=== PATIENT | female | born 1940 | race African-American/Black ===

== ENCOUNTER 2016-09-11 20:13 | Inpatient (IN) ==
[2016-09-11] MEDS ORDERED: ALBUTEROL NEB INH ONE (20:33)
[2016-09-11] MEDS ORDERED: DUONEB (A & A) INH ONE (20:33)
[2016-09-11] MEDS ORDERED: SOLU-MEDROL IV ONE (20:33)
[2016-09-11 20:43] LABS: MANUAL DIFF NEEDED? NO
[2016-09-11 20:54] LABS: BASO% 0.6 % (0.0-0.8); EOS# 0.52 X1000 (0.0-0.7); EOS% 6.2 % (0.0-10.0); HEMATOCRIT 45.3 % (37.0-47.0); HEMOGLOBIN 14.4 g/dL (12.0-16.0); IMM GRAN# 0.02 X1000 (0.0-0.04); IMM GRAN% 0.2 % (0.0-0.5); LYMPH# 1.54 X1000 (1.2-3.4); LYMPH% 18.2 % (20.5-51.1); MCH 29.6 PG (27-31); MCHC 31.8 g/dL (33-37); MCV 93.2 FL (81-99); MONO# 0.59 X1000 (0.11-0.59); MPV 12.4 FL (7.4-10.4); NEUT% 67.8 % (42.2-75.2); PLT 181 X1000 (130-400); RBC 4.86 XMIL (4.2-5.4)
[2016-09-11 21:18] LABS: CALCIUM 9.6 mg/dL (8.8-10.2); MAGNESIUM 2.3 mg/dL (1.5-2.7); POTASSIUM 4.3 mmol/L (3.5-5.1); TOTAL BILIRUBIN 0.3 mg/dL (0.20-1.00); TOTAL PROTEIN 7.7 g/dL (6.3-8.3)
--- NOTE | 2016-09-11 21:55 | Diag Imaging Result Document ---
PROCEDURE NAME: CHEST-2 VIEWS - 09/11/2016 FRONTAL AND LATERAL CHEST, 2 VIEWS: COMPARISON: 03/13/2016. FINDINGS: Sternal wires are present. The lungs are well expanded. The heart is not enlarged. The vessels are not distended. No pleural effusions. No pneumonia. Prominent aortic arch. This is unchanged from the prior exam. IMPRESSION: Stable chest.
[2016-09-11] MEDS: DUONEB (A & A) INH SCH (23:30)
[2016-09-12] MEDS: DUONEB (A & A) INH SCH ×6 (03:14→22:50)
--- NOTE | 2016-09-12 05:39 | EKG Report ---
Test Performed on : 09/11/2016 8:16:19 PM Test Reason : dyspnea Blood Pressure : / mmHG Vent. Rate : 106 BPM Atrial Rate : 096 BPM P-R Int : 000 ms QRS Dur : 100 ms QT Int : 332 ms P-R-T Axes : 000 -23 102 degrees QTc Int : 441 ms Accelerated Junctional rhythm. Septal infarct (cited on or before 11-SEP-2016) T wave abnormality, consider lateral ischemia Abnormal ECG When compared with ECG of 11-SEP-2016 20:15, (Unconfirmed) No significant change was found Unconfirmed Result
[2016-09-12] MEDS: HUMALOG DOSE (PARKWAY) SUBQ SCH ×4 (07:34→22:28)
[2016-09-12 08:08] LABS: BILIRUBIN URINE NEGATIVE (NEGATIVE); BLOOD URINE NEGATIVE (NEGATIVE); LEUKOCYTES URINE 1+ (NEGATIVE); NITRITE URINE NEGATIVE (NEGATIVE); PROTEIN URINE TRACE mg/dL (NEGATIVE); UROBILINOGEN URINE NORMAL
[2016-09-12 08:09] LABS: CLARITY CLEAR (CLEAR); COLOR YELLOW
[2016-09-12 08:18] LABS: URINE CULTURE PL NEEDED? YES; URINE EPITHELIAL CELLS <10 /HPF (<10)
[2016-09-12 08:19] LABS: URINE SOURCE CLEAN CATCH
[2016-09-12] MEDS ORDERED: ULTRAM PO PRN (09:04)
[2016-09-12] MEDS: LOPRESSOR PO SCH ×2 (10:43→22:26)
[2016-09-12] MEDS: ASPIRIN PO SCH (10:43)
[2016-09-12] MEDS: PRINIVIL PO SCH (10:43)
[2016-09-12] MEDS: GLUCOPHAGE PO SCH (10:44)
[2016-09-12] MEDS ORDERED: TYLENOL PO PRN (11:18)
[2016-09-12] MEDS ORDERED: ZOFRAN IV PRN (11:18)
[2016-09-12] MEDS: SOLU-MEDROL IV SCH ×2 (13:31→21:16)
[2016-09-12] MEDS: SYMBICORT 80/4.5 MICROGM INHALER INH SCH ×2 (14:48→19:23)
[2016-09-12] MEDS: CRESTOR PO SCH (21:15)
[2016-09-13] MEDS: DUONEB (A & A) INH SCH ×6 (04:02→22:54)
[2016-09-13] MEDS: SOLU-MEDROL IV SCH ×3 (04:40→20:40)
[2016-09-13] MEDS: HUMALOG DOSE (PARKWAY) SUBQ SCH ×4 (06:23→20:41)
[2016-09-13] MEDS: GLUCOPHAGE PO SCH (08:10)
--- NOTE | 2016-09-13 08:26 | PROGRESS NOTE ---
DATE: 09/13/2016 SUBJECTIVE: The patient notes that she is feeling a lot better this morning. She denies any current cough, congestion, chest pain. Denies any fevers or chills. States that overall she is feeling better. PHYSICAL EXAM: Vital Signs: Temperature 95, pulse 68, respiratory 10, BP 144/47, 173/81. Saturation 98% on 2 L. General: The patient is awake, alert. She is currently in no respiratory distress. She states she is feeling better. HEENT: Normocephalic. Neck: Supple. CV: Regular rate. Chest: Much more clear. No wheezing. No crackles, nonlabored. Abdomen: Soft. Extremities: Moves all extremities. Neurologic: No changes. LABS: Pending. ASSESSMENT: 1. Chronic obstructive pulmonary disease with moderate exacerbation. 2. Known coronary artery disease. 3. Diabetes, stable. 4. Hypertension. Will add lisinopril. 5. High cholesterol. PLAN: We will wean patient's Solu-Medrol to 40 IV q.8 hours. Hopefully home in the next day or 2. Will continue sliding scale insulin. We will add lisinopril. Continue breathing treatments, oxygen. Further orders as needed. cc: Lalo Mccord MD
[2016-09-13] MEDS: SYMBICORT 80/4.5 MICROGM INHALER INH SCH ×2 (08:39→19:46)
[2016-09-13 08:58] LABS: HEMATOCRIT 43.2 % (37.0-47.0); HEMOGLOBIN 13.5 g/dL (12.0-16.0); MCHC 31.3 g/dL (33-37); MCV 92.9 FL (81-99); RBC 4.65 XMIL (4.2-5.4)
--- NOTE | 2016-09-13 09:08 | Diag Imaging Result Document ---
PROCEDURE NAME: CHEST-PORTABLE - 09/12/2016 SINGLE FRONTAL RADIOGRAPH OF THE CHEST: COMPARISON: 09/11/2016. FINDINGS: The patient is rotated toward the right. No new consolidations are appreciated. Cardiac silhouette is stable. IMPRESSION: Stable chest with no definite acute pathology.
[2016-09-13 09:11] LABS: ALBUMIN 3.6 g/dL (3.5-5.0); CALCIUM 9.4 mg/dL (8.8-10.2); TOTAL BILIRUBIN 0.2 mg/dL (0.20-1.00); TOTAL PROTEIN 7.1 g/dL (6.3-8.3)
[2016-09-13] MEDS: ASPIRIN PO SCH (09:50)
[2016-09-13] MEDS: LOPRESSOR PO SCH ×2 (09:50→20:41)
[2016-09-13] MEDS: PRINIVIL PO SCH (09:50)
[2016-09-13] MEDS: KLOR-CON PO SCH (09:50)
[2016-09-13] MEDS: CRESTOR PO SCH (20:40)
[2016-09-14] MEDS: DUONEB (A & A) INH SCH ×6 (03:35→23:11)
[2016-09-14] MEDS ORDERED: NS 250 ML ONE (04:31)
[2016-09-14] MEDS: SOLU-MEDROL IV SCH ×2 (04:39→09:24)
[2016-09-14] MEDS: ROCEPHIN 1 GM/NS 1 GM/50 ML IVPB IV SCH (04:39)
[2016-09-14] MEDS: HUMALOG DOSE (PARKWAY) SUBQ SCH ×4 (06:29→21:04)
[2016-09-14] MEDS: GLUCOPHAGE PO SCH (07:30)
[2016-09-14] MEDS: SYMBICORT 80/4.5 MICROGM INHALER INH SCH ×2 (08:53→20:01)
[2016-09-14] MEDS: LOPRESSOR PO SCH ×2 (09:24→21:03)
[2016-09-14] MEDS: PRINIVIL PO SCH (09:24)
[2016-09-14] MEDS: KLOR-CON PO SCH (09:24)
[2016-09-14] MEDS: ASPIRIN PO SCH (09:24)
[2016-09-14] MEDS ORDERED: SOLU-MEDROL IV SCH (16:00)
[2016-09-14] MEDS: CRESTOR PO SCH (21:03)
--- NOTE | 2016-09-15 00:51 | DISCHARGE SUMMARY ---
ADMISSION DATE: 09/11/2016 DISCHARGE DATE: 09/14/2016 DISCHARGE DIAGNOSES: 1. Urinary tract infection. Final results still pending. 2. Chronic obstructive pulmonary disease, with exacerbation. 3. Coronary artery disease. 4. Diabetes. 5. Hypertension. Blood pressure was elevated, so we added lisinopril. 6. High cholesterol. CONSULTATIONS: None. PROCEDURES: None. BRIEF HOSPITAL COURSE: The patient is a 76-year-old female who was admitted as on the [facility]. Treated in the usual fashion. Thankfully, she had an uneventful hospital course. She was transitioned over to Solu-Medrol daily. This continued to improve. On discharge, she was awake, alert. She was ambulating in the mulligan without any difficulty. Therefore, she will be discharged home. DISPOSITION: The patient will be discharged home. She will continue lisinopril 10 mg, metformin 500, Symbicort, albuterol, Crestor, Medrol Dosepak, and antibiotics for her urinary tract infection. TIME SPENT: 35 minutes was spent in discharge planning. cc: Lalo Mccord MD
--- NOTE | 2016-09-15 03:12 | ED EKG INTERP ---
This chart was entered by Carly Bruce Scribe, acting as scribe for Valente Ramirez MD. EKG Interpretation - EKG Time of EKG reading by physician:: 20:16 EKG Read and Signed by:: Valente Ramirez EKG Interpretation (*Must complete 3 of following elements*): Abnormal Rate: 106 Rhythm: ACCELERATED JUNCTIONAL RHYTHM WI Interval: normal ST Wave: non-specific ST changes (T WAVE ABNORMALITY, CONSIDER LATERAL ISCHEMIA , SEPTAL INFARCT, AGE UNDETERMINED) This chart was documented by the indicated scribe, (Carly Bruce Scribe) and accurately reflects the services I performed and decisions made by me, Valente Ramirez MD, as attested by the provider's signature.
--- NOTE | 2016-09-15 03:15 | PROVIDER DOCUMENTATION ---
This chart was entered by Carly Bruce Scribe, acting as scribe for Valente Ramirez MD. HPI-General Adult - General Chief Complaint: Shortness of Breath Stated Complaint: SOB, CHEST PAIN Time Seen by Provider: 09/11/16 20:25 Source: patient Allergies/Adverse Reactions: Patient Allergies Allergy/AdvReac Type Severity Reaction Status Date / Time No Known Allergies Allergy Verified 09/11/16 20:24 Home Medications: Home Medication List Medication Instructions Recorded Confirmed Last Taken Type Aspirin 81 mg PO QAM 05/23/12 09/11/16 09/11/16 History Metoprolol [Lopressor] 25 mg PO BID 11/17/12 09/11/16 09/11/16 History Furosemide [Lasix] 40 mg PO QAM 09/01/14 09/11/16 09/11/16 History Metformin [Glucophage] 500 mg PO QAM 09/01/14 09/11/16 09/11/16 History Rosuvastatin Calcium [Crestor] 40 mg PO HS 03/13/15 09/11/16 09/10/16 History LISINOpril [Prinivil] 10 mg PO DAILY #0 tablet 03/15/15 09/11/16 09/11/16 Rx Potassium Chloride E.r. [Klor-Con] 20 meq PO QAM 05/25/15 09/11/16 09/11/16 History Methocarbamol [Robaxin] 500 mg PO BID #20 tablet 09/06/16 09/11/16 09/11/16 Rx Budesonide/Formoterol Inhaler 2 puff INH RTBID 09/11/16 09/11/16 Unknown History [Symbicort 80/4.5 Microgm Inhaler] Tramadol [Ultram] 50 mg PO Q8H PRN PRN 09/11/16 09/11/16 09/10/16 History - History of Present Illness -Gen Adult Nature of Presenting Problems: PT IS A 76YOF PRESENTING TO THE ED C/O COUGH. PT STATES SHE HAS CHEST PAIN AND SOME SOB WHEN SHE COUGHS. PT STATES STARTED 2-3DAYS AGO AND SHES HAD CHILLS AND NAUSEA BUT NO FEVER OR VOMITING AT THIS TIME. Location of Pain/Injury: reports: chest Pain Radiation: reports: no radiation Quality of Pain: reports: fullness Severity: reports: mild Onset/Duration: reports: 3 days ago Timing: reports: still present, intermittent Context/Activities at Onset: reports: light activity Modifying Factors: improves with: nothing Associated Symptoms: reports: chest pain, cough, fever/chills, pain with inspiration. denies: back/neck pain, shortness of breath Similar Symptoms Previously?: No Recently seen or treated by another doctor?: No Review of Systems - Adult - REVIEW OF SYSTEMS - ADULT Constitutional: reports: no symptoms reported. denies: fever Eyes: reports: no symptoms reported Ears, Nose, Mouth & Throat: reports: no symptoms reported Cardiovascular: reports: see HPI, chest pain. denies: palpitations, syncope Respiratory: reports: see HPI, cough, dyspnea on exertion, wheezing. denies: shortness of breath Gastrointestinal: reports: no symptoms reported Genitourinary: reports: no symptoms reported Musculoskeletal: reports: no symptoms reported Integumentary: reports: no symptoms reported Neurological: reports: no symptoms reported Psychiatric: reports: no symptoms reported Endocrine: reports: no symptoms reported Hematologic/Lymphatic: reports: no symptoms reported Allergic/Immunologic: reports: no symptoms reported All Other Systems: Reviewed and Negative Past History - Adult - PAST MEDICAL HISTORY-ADULT Review of Records: reports: Old Records Reviewed, Nursing Assessment Review, Medications Reviewed, Social history reviewed & non-contributory. Major Childhood Illnesses: reports: denies history Cardiovascular: reports: CAD, HTN, hyperlipidemia, [place] Respiratory: reports: COPD (on inhalers) Gastrointestinal: reports: denies history Obstetrical/Gynecological: reports: denies history Genitourinary: reports: denies history Musculoskeletal: reports: arthritis Neurological: reports: CVA Endocrine/Immune: reports: Diabetes Other Conditions: reports: denies history - PRIOR SURGERIES/PROCEDURES Surgical/Procedure History: reports: appendectomy, CABG, cardiac stent - IMMUNIZATION STATUS Childhood Immunizations: See Nurse Assessment Flu Vaccine: See Nurse Assessment - FAMILY HISTORY Family History: reviewed, not pertinent - SOCIAL HISTORY Smoking: quit greater than 1 year Substance Use: none/never, alcohol Alcohol Use Frequency: occasionally Number of drinks per typical drinking period:: 2 drinks Living Situation: family Physical Exam-General - PHYSICAL EXAM-ADULT Initial Vital Signs Reviewed: Yes - CONSTITUTIONAL General Appearance: appears well, alert, mild distress - EYES Eyes: PERRL/EOMI, pink conjunctivae, fundi clear, no AV nicking - HEAD, EARS, NOSE, MOUTH & THROAT HENMT: normocephalic/atraumatic, moist mucous membranes, normal ENT inspection, TMs normal, pharynx normal - NECK Neck: non-tender, full range of motion, supple, normal inspection - RESPIRATORY Respiratory: chest non-tender, no respiratory distress, no accessory muscle use , wheezing, pain on inspiration. negative: lungs clear, normal breath sounds, no pleuratic chest pain - CARDIOVASCULAR Cardiovascular: normal peripheral pulses, no edema, no gallop, no JVD, no murmur , tachycardia. negative: regular rate, rhythm - GASTROINTESTINAL (ABDOMEN) Abdominal Exam: normal bowel sounds, non tender, soft, no organomegaly, no pulsatile mass - LYMPHATIC Lymphatic: no adenopathy - MUSCULOSKELETAL Back Exam: normal inspection, no CVA tenderness, no vertebral tenderness Extremity: normal range of motion, non-tender, normal gait, normal inspection, no pedal edema, no calf tenderness, normal capillary refill, pelvis stable - SKIN Integumentary: normal color, normal turgor, warm/dry - NEUROLOGIC Neurologic: forest patrolman II-XII nml as tested, no motor/sensory deficits - PSYCHIATRIC Psych/Mental Status: normal mood/affect, normal thought content, normal thought process, oriented x 3 Progress - PLAN OF CARE/RESULTS Progress/Plan/Lab Results: Vital Signs - 8 hr 09/11/16 20:18 Temperature 99.6 F Pulse Rate 109 H Respiratory Rate 24 Blood Pressure 190/75 O2 Sat by Pulse Oximetry 94 L Orders Category Date Time Status Cardiac Monitoring DIRECTED Care 09/11/16 20:25 Active Oxygen Therapy- ED Nursing DIRECTED Care 09/11/16 20:25 Active Saline Loc NOW Care 09/11/16 20:25 Active CHEST-2 VIEWS [RAD] Stat Exams 09/11/16 20:25 Ordered CBC WITH DIFF [HEME] Stat Lab 09/11/16 20:25 Ordered CK PROFILE [SP CHEM] Stat Lab 09/11/16 20:25 Ordered COMPREHENSIVE METABOLIC PANEL [CHEM] Stat Lab 09/11/16 20:25 Ordered MAGNESIUM [CHEM] Stat Lab 09/11/16 20:25 Ordered PRO B-NATRIURETIC PEPTIDE Stat Lab 09/11/16 20:25 Ordered TROPONIN T Stat Lab 09/11/16 20:25 Ordered Albuterol 2.5MG/Ipratrop 0.5MG [Duoneb (A & A)] Med 09/11/16 20:33 Discontinued 3 ml INH NOW ONE Albuterol [Albuterol Neb] Med 09/11/16 20:33 Discontinued 5 mg INH NOW ONE Methylprednisolone Sod Succ [Solu-Medrol] Med 09/11/16 20:33 Discontinued 125 mg IV NOW ONE Aerosol Treatments Routine Oth 09/11/16 20:33 Active Aerosol Treatments Stat Oth 09/11/16 20:33 Active Pulse Oximetry Stat Oth 09/11/16 20:25 Active EKG [EKG] Stat Ther 09/11/16 20:25 Ordered Result Diagrams: 09/13/16 08:45 09/13/16 08:45 - XRAY 1 XRAY: Bilateral XRAY Study: Chest (ENLARGED AORTO, UNCHANGED FROM PREVIOUS FILM) Departure - Departure Time of Disposition Decision: 03:17 DIAGNOSIS: Chest pain Qualifiers: Chest pain type: unspecified Qualified Code(s): R07.9 - Chest pain, unspecified Disposition: ADMITTED INPATIENT 09 Certified Medical Emergency: Emergent Condition: Good - Critical Care Note This patient required my direct personal management.: Yes This chart was documented by the indicated scribe, (Carly Bruce Scribe) and accurately reflects the services I performed and decisions made by me, Valente Ramirez MD, as attested by the provider's signature.
[2016-09-15] MEDS: DUONEB (A & A) INH SCH ×3 (04:05→10:31)
[2016-09-15] MEDS: ROCEPHIN 1 GM/NS 1 GM/50 ML IVPB IV SCH (05:02)
[2016-09-15] MEDS: HUMALOG DOSE (PARKWAY) SUBQ SCH (06:20)
[2016-09-15] MEDS: SYMBICORT 80/4.5 MICROGM INHALER INH SCH (07:14)
[2016-09-15 07:24] VITALS: BP 130/52
--- NOTE | 2016-09-15 08:39 | PROGRESS NOTE ---
DATE: 09/15/2016 SUBJECTIVE: The patient notes she is feeling much better. She is off oxygen. She is able to ambulate the room without much difficulty. OBJECTIVE: Vital Signs: Temp 97, pulse 69, respiratory 16, BP 130/52, satting 100% on room air. General: Patient is awake, alert. She is currently in no respiratory distress. She is feeling much better. She is pleasant to talk with. Neck: Supple. CV: Regular rate. Chest: Relatively clear. Abdomen: Soft. Extremities: Moves all extremities. Neurologic: No focal changes. Skin: Warm and dry. No rashes. ASSESSMENT: 1. Urinary tract infection with gram-negative rods. Culture and sensitivity still pending. 2. Chronic obstructive pulmonary disease with exacerbation resolved. 3. Hypoxic respiratory failure, resolved. 4. Diabetes, stable. 5. Obesity. 6. Others. PLAN: Patient hopefully will be discharged home as soon as the culture and sensitivity returns, assuming that it is sensitive to an oral antibiotic. We will continue her medications, place her on a quick Medrol Dosepak as an outpatient, and she will follow up in the office in 1 week. cc: Lalo Mccord MD
[2016-09-15] MEDS: LOPRESSOR PO SCH (08:41)
[2016-09-15] MEDS: KLOR-CON PO SCH (08:41)
[2016-09-15] MEDS: GLUCOPHAGE PO SCH (08:41)
[2016-09-15] MEDS: SOLU-MEDROL IV SCH (08:41)
[2016-09-15] MEDS: ASPIRIN PO SCH (08:41)
[2016-09-15] MEDS: PRINIVIL PO SCH (08:42)
--- NOTE | 2016-09-18 13:36 | HISTORY AND PHYSICAL ---
CHIEF COMPLAINT: Shortness of breath. HISTORY OF PRESENT ILLNESS: Patient is a 76-year-old female who presented to the emergency department with a chief complaint of shortness of breath. Notes that she has been coughing, congested, short of breath for the past couple of days. It continues to worsen. She denies any current fevers or chills. Denies any nausea or vomiting. Denies any sick contacts. She has had a nonproductive cough. States that if she coughs enough she starts having nausea. ALLERGIES: No known drug allergies. MEDICATIONS: Aspirin 81, Lopressor 25 b.i.d., Lasix 40, Glucophage 500, Crestor 40. Prinivil 10, Robaxin 500 b.i.d. and tramadol p.r.n., Symbicort b.i.d. REVIEW OF SYSTEMS: As noted above. Denies any current chest pain, palpitations. Denies any fevers, chills. Denies any dysuria, frequency, urgency. Denies production to her cough. Denies any dysuria, frequency, urgency. Denies any polyuria or polydipsia. Denies skin rashes, weight loss, or weight gain. PAST MEDICAL HISTORY: Known history of coronary artery disease, hypertension, hyperlipidemia, history of [place], COPD, diabetes, history of CVA. PAST SURGICAL HISTORY: She has known coronary artery disease with a cardiac stent and history of CABG in the past. She has an appendectomy. FAMILY HISTORY: Noncontributory. SOCIAL HISTORY: Patient lives at home. She is cared for by her family. She does not smoke although has a long history of smoking. She has stopped more than a year ago. She does not drink alcohol on any heavy basis although the family notes that she does drink 1 or 2 drinks a day. PHYSICAL EXAMINATION: VITAL SIGNS: Temperature 99, pulse 109, respiratory rate 24, blood pressure 109/75, saturating 94% on room air. GENERAL: Patient is awake, alert, oriented. She is currently in no real respiratory distress. Speech is regular. Memory is intact. NECK: Supple. CARDIOVASCULAR: Regular rate. Decreased breath sounds but equal bilaterally. Positive wheezing bilaterally. ABDOMEN: Soft. EXTREMITIES: Moves all extremities. NEUROLOGIC: No focal changes. SKIN: Warm and dry. No rashes. LABORATORY DATA: Reviewed: CBC essentially normal. CMP with elevated BUN and creatinine at 26/1.2. Glucose 243. Potassium 5.0. ASSESSMENT: 1. Chronic obstructive pulmonary disease with exacerbation. 2. Diabetes with hyperglycemia. 3. Hyperkalemia. 4. Known coronary artery disease. 5. Hypoxic respiratory failure. 6. Urinary tract infection. PLAN: We will admit patient to the hospital. IV fluids, antibiotics, breathing treatments. Placed her on steroids. We will continue to follow. Further orders as needed. cc: Lalo Mccord MD
== END 2016-09-15 12:30 | disposition home or self-care (01) ==
LOC: P.ED 20:13 → P.MEDSURG 20:13 → OBSVTOIN 22:03
PROVIDERS: ADMIT Family Medicine; ATTEND Family Medicine

== ENCOUNTER 2016-10-16 11:07 | Observation (INO) ==
[2016-10-16 11:37] LABS: MANUAL DIFF NEEDED? NO
[2016-10-16 11:39] LABS: BASO% 0.5 % (0.0-0.8); EOS# 0.02 X1000 (0.0-0.7); EOS% 0.2 % (0.0-10.0); HEMATOCRIT 40.5 % (37.0-47.0); HEMOGLOBIN 12.9 g/dL (12.0-16.0); IMM GRAN# 0.02 X1000 (0.0-0.04); IMM GRAN% 0.2 % (0.0-0.5); LYMPH# 0.89 X1000 (1.2-3.4); LYMPH% 10.4 % (20.5-51.1); MCH 29.5 PG (27-31); MCHC 31.9 g/dL (33-37); MCV 92.7 FL (81-99); MONO# 1.03 X1000 (0.11-0.59); MPV 10.8 FL (7.4-10.4); NEUT% 76.7 % (42.2-75.2); PLT 146 X1000 (130-400); RBC 4.37 XMIL (4.2-5.4)
--- NOTE | 2016-10-16 11:45 | EKG Report ---
Test Performed on : 10/16/2016 11:28:34 AM Test Reason : weakness Blood Pressure : / mmHG Vent. Rate : 102 BPM Atrial Rate : 102 BPM P-R Int : 200 ms QRS Dur : 084 ms QT Int : 386 ms P-R-T Axes : 004 -29 216 degrees QTc Int : [address] \T\ T wave abnormality, consider inferior ischemia ST \T\ T wave abnormality, consider anterolateral ischemia Abnormal ECG When compared with ECG of 11-SEP-2016 20:16, Significant changes have occurred Unconfirmed Result
[2016-10-16 11:56] LABS: ALBUMIN 3.3 g/dL (3.5-5.0); CALCIUM 9.1 mg/dL (8.8-10.2); POTASSIUM 4.7 mmol/L (3.5-5.1); TOTAL BILIRUBIN 0.8 mg/dL (0.20-1.00); TOTAL PROTEIN 6.5 g/dL (6.3-8.3)
[2016-10-16 11:57] LABS: MAGNESIUM 1.9 mg/dL (1.5-2.7)
[2016-10-16 12:23] LABS: BILIRUBIN URINE NEGATIVE (NEGATIVE); BLOOD URINE 4+ (NEGATIVE); CLARITY VERY CLOUDY (CLEAR); COLOR YELLOW; GLUCOSE URINE NEGATIVE (NEGATIVE); LEUKOCYTES URINE 2+ (NEGATIVE); NITRITE URINE POSITIVE (NEGATIVE); PROTEIN URINE 1+(30 mg/dL) mg/dL (NEGATIVE); URINE EPITHELIAL CELLS <10 /HPF (<10); URINE RBC TNTC /HPF (<10); URINE WBC 20-40 /HPF (<10); UROBILINOGEN URINE NORMAL
[2016-10-16 12:24] LABS: URINE CULTURE PL NEEDED? YES; URINE SOURCE CLEAN CATCH
[2016-10-16] MEDS ORDERED: ROCEPHIN 1 GM/NS 1 GM/50 ML IVPB IV ONE (12:44)
[2016-10-16] MEDS ORDERED: LASIX IV ONE (12:44)
--- NOTE | 2016-10-16 12:57 | PROVIDER DOCUMENTATION ---
This chart was entered by Zoie Kwong Scribe, acting as scribe for Sera Bell CRNP. HPI-General Adult - General Chief Complaint: Weakness Stated Complaint: weakness Time Seen by Provider: 10/16/16 11:16 Source: patient Allergies/Adverse Reactions: Patient Allergies Allergy/AdvReac Type Severity Reaction Status Date / Time No Known Allergies Allergy Verified 09/11/16 20:24 Home Medications: Home Medication List Medication Instructions Recorded Confirmed Last Taken Type Aspirin 81 mg PO QAM 05/23/12 09/11/16 09/11/16 History Metoprolol [Lopressor] 25 mg PO BID 11/17/12 09/11/16 09/11/16 History Furosemide [Lasix] 40 mg PO QAM 09/01/14 09/11/16 09/11/16 History Metformin [Glucophage] 500 mg PO QAM 09/01/14 09/11/16 09/11/16 History Rosuvastatin Calcium [Crestor] 40 mg PO HS 03/13/15 09/11/16 09/10/16 History LISINOpril [Prinivil] 10 mg PO DAILY #0 tablet 03/15/15 09/11/16 09/11/16 Rx Potassium Chloride E.r. [Klor-Con] 20 meq PO QAM 05/25/15 09/11/16 09/11/16 History Methocarbamol [Robaxin] 500 mg PO BID #20 tablet 09/06/16 09/11/16 09/11/16 Rx Budesonide/Formoterol Inhaler 2 puff INH RTBID 09/11/16 09/11/16 Unknown History [Symbicort 80/4.5 Microgm Inhaler] Tramadol [Ultram] 50 mg PO Q8H PRN PRN 09/11/16 09/11/16 09/10/16 History Methylprednisolone [Medrol Dosepak] 4 mg PO DIRECTED #1 package 09/15/16 Unknown Rx Nitrofurantoin [place]/Macrocryst 100 mg PO BID #10 capsule 09/15/16 Unknown Rx [Macrobid] Nitrofurantoin Monohyd/M-Cryst 100 mg PO BID #14 capsule 10/16/16 Unknown Rx [Macrobid 100 mg Capsule] - History of Present Illness -Gen Adult Nature of Presenting Problems: 76 yo F presents to the ER with complaint of low back pain and pelvic pain with urination and generalized weakness x1 week. Denies any CP or SOB. Onset/Duration: reports: 1 week ago Associated Symptoms: reports: back/neck pain, genitourinary problems, weakness Review of Systems - Adult - REVIEW OF SYSTEMS - ADULT Constitutional: denies: chills, fever Eyes: reports: no symptoms reported Ears, Nose, Mouth & Throat: reports: no symptoms reported Cardiovascular: denies: chest pain, palpitations Respiratory: denies: cough, shortness of breath Gastrointestinal: denies: diarrhea, nausea, vomiting Genitourinary: reports: dysuria. denies: discharge, hematuria Musculoskeletal: reports: back pain, joint pain Integumentary: reports: no symptoms reported Neurological: reports: no symptoms reported Psychiatric: reports: no symptoms reported Endocrine: reports: no symptoms reported Hematologic/Lymphatic: reports: no symptoms reported Allergic/Immunologic: reports: no symptoms reported All Other Systems: Reviewed and Negative Past History - Adult - PAST MEDICAL HISTORY-ADULT Review of Records: reports: Nursing Assessment Review, Medications Reviewed Cardiovascular: reports: CAD, HTN, hyperlipidemia, [place] Respiratory: reports: COPD (on inhalers) Musculoskeletal: reports: arthritis Neurological: reports: CVA Endocrine/Immune: reports: Diabetes - PRIOR SURGERIES/PROCEDURES Surgical/Procedure History: reports: appendectomy, CABG, cardiac stent - IMMUNIZATION STATUS Childhood Immunizations: See Nurse Assessment Flu Vaccine: See Nurse Assessment Physical Exam-General - PHYSICAL EXAM-ADULT Initial Vital Signs Reviewed: Yes - CONSTITUTIONAL General Appearance: alert, no apparent distress - EYES Eyes: PERRL/EOMI, pink conjunctivae - HEAD, EARS, NOSE, MOUTH & THROAT HENMT: normocephalic/atraumatic, normal ENT inspection - NECK Neck: supple, normal inspection - RESPIRATORY Respiratory: no respiratory distress, no accessory muscle use - CARDIOVASCULAR Cardiovascular: normal peripheral pulses, regular rate, rhythm - GASTROINTESTINAL (ABDOMEN) Abdominal Exam: normal bowel sounds, non tender, soft - MUSCULOSKELETAL Back Exam: no CVA tenderness, no vertebral tenderness Extremity: normal gait, normal inspection - SKIN Integumentary: normal color, warm/dry - NEUROLOGIC Neurologic: grossly normal, no motor/sensory deficits - PSYCHIATRIC Psych/Mental Status: normal mood/affect, normal thought content, normal thought process, oriented x 3 Progress - PLAN OF CARE/RESULTS Progress/Plan/Lab Results: Vital Signs - 8 hr 05/27/17 11:08 Pulse Rate 111 H Respiratory Rate 19 Blood Pressure 177/77 O2 Sat by Pulse Oximetry 94 L Laboratory Results - last 24 hr 10/16/16 11:17 POC Glucose 148 H Orders Category Date Time Status Cardiac Monitoring DIRECTED Care 10/16/16 11:16 Active CHEST-2 VIEWS [RAD] Stat Exams 10/16/16 11:16 Ordered CBC WITH DIFF [HEME] Stat Lab 10/16/16 11:15 Ordered CK PROFILE [SP CHEM] Stat Lab 10/16/16 11:16 Ordered COMPREHENSIVE METABOLIC PANEL [CHEM] Stat Lab 10/16/16 11:15 Ordered MAGNESIUM [CHEM] Stat Lab 10/16/16 11:16 Ordered PRO B-NATRIURETIC PEPTIDE Stat Lab 10/16/16 11:16 Ordered TROPONIN T Stat Lab 10/16/16 11:[address] W/POSS RFLX CULT [URINALYSIS] Stat Lab 10/16/16 11:21 Uncollected EKG [EKG] Stat Ther 10/16/16 11:15 Ordered Discussed results and plan of care with patient. Patient agrees with plan and verbalizes understanding. Result Diagrams: 10/16/16 11:30 10/16/16 11:30 - EKG 1 Time of EKG reading by physician:: 11:28 EKG Read and Signed by:: Jose Young EKG Interpretation (*Must complete 3 of following elements*): Abnormal Rate: 102 Rhythm: sinus tach [place]: normal QRS: normal ST Wave: non-specific ST changes (consider inferior ischemia or anterolateral ischemia) Prior EKG Comparison: changes noted (lateral T wave ischemia) - XRAY 1 XRAY Study: Chest, Abdomen XRAY Interpretation: NAD per radiology Departure - Departure Time of Disposition Decision: 12:52 DIAGNOSIS: Urinary tract infection Qualifiers: Urinary tract infection type: acute cystitis Hematuria presence: without hematuria Qualified Code(s): N30.00 - Acute cystitis without hematuria CHF exacerbation Qualifiers: Congestive heart failure type: unspecified congestive heart failure type Qualified Code(s): I50.9 - Heart failure, unspecified Disposition: HOME 01 Certified Medical Emergency: Emergent Condition: Stable Additional Freetext Instructions: Follow up with primary care physician Take medications as directed Return to ED for any concerns or worsening of symptoms ED Follow Up Instructions: You have been treated by a care provider in the Emergency Department. These instructions are being provided to you so you can have an understanding of how to care for yourself upon discharge. Upon discharge from the Emergency Department, you are responsible for making arrangements for follow-up care by a physician of your choice. Take all prescribed medications as directed. Return to the Emergency Department immediately for any new or worsening symptoms. You may call the Physician Referral phone number at [phone] to obtain a list of Physicians who are taking new patients. Prescriptions: Nitrofurantoin Monohyd/M-Cryst [Macrobid 100 mg Capsule] 100 mg PO BID #14 capsule - Critical Care Note This patient required my direct & personal management of CC.: No Attestation - Physician/ BETH Attestation Patient care was provided by Advanced Practice Provider:: Yes Advanced Practice Provider:: Sera Bell Advanced Practice Provider documentation review:: The Mid-level provider documentation, treatment plan and medical decision making was reviewed by the physician who agrees with all treatment and medical decision making by the MLP. This chart was documented by the dez houseiberic, (Zoie Kwong Scribe) and accurately reflects the services I performed and decisions made by me, Sera Bell CRNP, as attested by the provider's signature.
[2016-10-16] MEDS ORDERED: TYLENOL PO ONE (13:03)
[2016-10-16] MEDS ORDERED: NS 1,000 ML IV ONE ×2 (13:50→14:34)
[2016-10-16] MEDS ORDERED: TYLENOL PO PRN ×3 (13:50→18:25)
--- NOTE | 2016-10-16 14:05 | Diag Imaging Result Doc PS360 ---
CHEST-2 VIEWS - 10/16/2016 INDICATION: weakness TECHNIQUE: COMPARISON: 09/12/2016 FINDINGS: Stable sternotomy changes. Stable unfolding of the aorta. No focal infiltrates, pneumothorax, or pleural effusion. Heart size and pulmonary vascularity remain normal. IMPRESSION: Negative exam. Electronically signed by Panfilo Conway 10/16/2016 2:03 PM
--- NOTE | 2016-10-16 14:06 | Diag Imaging Result Doc PS360 ---
ABDOMEN FLAT/UPRIGHT - 10/16/2016 INDICATION: pain TECHNIQUE: Two views COMPARISON: 03/13/2016 FINDINGS: There is a nonobstructive bowel gas pattern with no free air. There is a calcification projecting over the right renal shadow. This measures about 8 mm. This suggests a renal stone. IMPRESSION: Probable right renal stone. Electronically signed by Panfilo Conway 10/16/2016 2:04 PM
[2016-10-16] MEDS ORDERED: ZOFRAN IV PRN ×2 (18:20→18:25)
[2016-10-17] MEDS: PRILOSEC PO SCH (06:20)
[2016-10-17 06:49] LABS: HEMATOCRIT 42.6 % (37.0-47.0); HEMOGLOBIN 13.5 g/dL (12.0-16.0); MCH 29.3 PG (27-31); MCHC 31.7 g/dL (33-37); MCV 92.6 FL (81-99); RBC 4.6 XMIL (4.2-5.4)
[2016-10-17] MEDS ORDERED: PRILOSEC PO SCH (07:00)
[2016-10-17 07:19] LABS: ALBUMIN 3.3 g/dL (3.5-5.0); CALCIUM 9.2 mg/dL (8.8-10.2); MAGNESIUM 2.1 mg/dL (1.5-2.7); POTASSIUM 4.1 mmol/L (3.5-5.1); TOTAL BILIRUBIN 0.6 mg/dL (0.20-1.00); TOTAL PROTEIN 6.2 g/dL (6.3-8.3)
[2016-10-17] MEDS ORDERED: GLUCOPHAGE PO SCH (10:45)
--- NOTE | 2016-10-17 11:15 | PROGRESS NOTE ---
DATE: 10/17/2016 SUBJECTIVE: Patient is awake, alert, oriented. She states she does not remember seeing me in the hospital yesterday. States she does not remember coming to the hospital yesterday but notes that she is feeling much better today. Denies any nausea or vomiting. PHYSICAL EXAMINATION: Vital Signs: Temperature 99, pulse 72, respiratory rate 19, BP 145/55, saturation 95% on room air. General: Patient is awake, alert, oriented. She is currently in no respiratory distress. Pleasant to talk with. HEENT: Normocephalic, atraumatic. Neck: Supple. CV: Regular rate. Chest: Clear. Abdomen: Soft. Extremities: Moves all extremities. Neurologic: No focal changes. Skin: Warm and dry. No rashes. DIAGNOSTIC DATA: CBC and CMP unchanged. ASSESSMENT: 1. Sepsis secondary to urinary tract infection, improving. 2. Acute metabolic encephalopathy secondary to pyelonephritis, resolved. 3. Fever, resolved. 4. Tachycardia secondary to sepsis, resolved. 5. Hypertension, stable. 6. High cholesterol. PLAN: We will continue patient on her current medications, Rocephin. We will restart her home blood pressure medications and we will follow. Further orders as needed. We will move to the floor. cc: Lalo Mccord MD
[2016-10-17] MEDS: PRINIVIL PO SCH (12:09)
[2016-10-17] MEDS ORDERED: ROCEPHIN 1 GM/NS 1 GM/50 ML IVPB IV SCH (13:00)
--- NOTE | 2016-10-17 15:31 | HISTORY AND PHYSICAL ---
CHIEF COMPLAINT: Altered mental status. HISTORY OF PRESENT ILLNESS: Patient is confused. She is unable to answer questions. The history is per the chart. The family notes that she has progressively worsened in the last couple of days. Increased dyspnea on exertion, increased confusion and disorientation. ALLERGIES: No known drug allergies. FAMILY HISTORY: Noncontributory. MEDICATIONS: Tramadol, Crestor 40, Macrobid recently for UTI, Lopressor 25 b.i.d., Robaxin 500, Glucophage, Prinivil, Lasix, aspirin. REVIEW OF SYSTEMS: As noted on the chart. Patient is confused, disoriented. She is unable to answer questions. SOCIAL HISTORY: She is . Lives at home. Does not smoke. PHYSICAL EXAMINATION: VITAL SIGNS: Temperature 103 degrees, pulse 105, respiratory rate 22, BP 177/80, saturation 96% on room air. GENERAL: The patient is awake but confused. She is disoriented, does not seem to recognize me. HEENT: Normocephalic, atraumatic. NECK: Supple. CARDIOVASCULAR: Tachycardia. CHEST: Clear, nonlabored. ABDOMEN: Soft, nondistended. EXTREMITIES: Moves all extremities. NEUROLOGIC: No focal changes although she does not follow commands. She does appear to move all 4 extremities. SKIN: Warm and dry. No rashes. DIAGNOSTIC DATA: CBC normal. CMP with a creatinine 1.5, glucose 151. BNP 1502. albumin 3.3. Plasma lactate 2.8 and abnormal urine. ASSESSMENT: 1. Pyelonephritis. 2. Sepsis secondary to pyelonephritis. 3. Fever. 4. Chronic renal failure, currently at her baseline. 5. Hypertension. 6. High cholesterol. 7. Metabolic encephalopathy, secondary to pyelonephritis. PLAN: We will admit patient to the hospital. Place her in the ICU as she is confused and disoriented and having fever. We will follow her blood pressures. Start her on IV fluids although we will not do several boluses as she has a history of congestive heart failure and has a BNP elevated at 1502. We will place her on antibiotics, Rocephin, and continue to follow. cc: Lalo Mccord MD
[2016-10-18] MEDS: PRILOSEC PO SCH (06:13)
[2016-10-18] MEDS: PRINIVIL PO SCH (08:54)
[2016-10-18] MEDS ORDERED: JANUVIA PO SCH (09:00)
[2016-10-18 11:45] VITALS: BP 151/58
[2016-10-18] MEDS ORDERED: PRINIVIL PO SCH (12:00)
[2016-10-18] MEDS ORDERED: SEPTRA DS PO SCH (12:00)
[2016-10-18] MEDS ORDERED: ROBAXIN PO SCH (21:00)
[2016-10-18] MEDS ORDERED: CRESTOR PO SCH (21:00)
[2016-10-19] MEDS ORDERED: ULORIC PO SCH (09:00)
[2016-10-19] MEDS ORDERED: ZETIA PO SCH (09:00)
[2016-10-19] MEDS ORDERED: JANUVIA PO SCH (09:00)
[2016-10-19] MEDS ORDERED: LASIX PO SCH (09:00)
[2016-10-19] MEDS ORDERED: ASPIRIN PO SCH (09:00)
--- NOTE | 2016-12-13 11:20 | DISCHARGE SUMMARY ---
ADMISSION DATE: 10/16/2016 DISCHARGE DATE: 10/18/2016 DISCHARGE DIAGNOSES: 1. Pyelonephritis, resolved. 2. Sepsis secondary to pyelonephritis, resolved. 3. Fever, resolved. 4. Acute metabolic encephalopathy secondary to pyelonephritis, resolved. 5. Chronic renal failure, stable. 6. Hypertension, stable. 7. Hypercholesterolemia, stable. CONSULTATIONS: None. PROCEDURES: None. BRIEF HOSPITAL COURSE: The patient was in elderly female who presented to the emergency department, confused, disoriented. She subsequently was diagnosed with pyelonephritis, and this was felt to be the cause of her acute confusion. Thankfully, her confusion continued to improve. On discharge, she is awake, alert. She is in no distress. Note she is feeling better. She is ambulating in the room. DISPOSITION: The patient will be discharged. She will continue antibiotics for another 5-7 days. She will follow up in the office during this time. We will continue to follow her blood pressures. No other changes were made on her chronic home medications. cc: Lalo Mccord MD
== END 2016-10-18 14:00 | disposition home or self-care (01) ==
LOC: P.ED 11:07 → P.MEDSURG 11:07 → INTOOBSV 14:31 → OBSVTOIN 14:31 → SUATTDRO 14:31 → P.ICU 14:55 → P.MEDSURG 10-17 12:59
PROVIDERS: ADMIT Family Medicine; ATTEND Internal Medicine

== ENCOUNTER 2016-11-10 15:19 | Observation (INO) ==
[2016-11-10] MEDS ORDERED: NS 1,000 ML IV ONE ×2 (15:30→21:14)
[2016-11-10 16:06] LABS: MANUAL DIFF NEEDED? NO
--- NOTE | 2016-11-10 16:16 | Diag Imaging Result Doc PS360 ---
EXAM: CHEST-PORTABLE HISTORY: fever TECHNIQUE: Single view of the chest was performed portably. COMPARISON: 10/09/1716 FINDINGS: There are median sternotomy wires. The aorta is tortuous but stable. Pulmonary vasculature is not congested. No acute infiltrate is identified. There is no pneumothorax. IMPRESSION: No acute cardiopulmonary abnormality is identified. Electronically signed by Jazz Goodman 11/10/2016 4:14 PM
[2016-11-10 16:20] LABS: BASO% 0.3 % (0.0-0.8); EOS# 0.01 X1000 (0.0-0.7); EOS% 0.1 % (0.0-10.0); HEMATOCRIT 37.1 % (37.0-47.0); HEMOGLOBIN 11.8 g/dL (12.0-16.0); IMM GRAN# 0.04 X1000 (0.0-0.04); IMM GRAN% 0.4 % (0.0-0.5); LYMPH# 1.41 X1000 (1.2-3.4); LYMPH% 14.5 % (20.5-51.1); MCH 29.1 PG (27-31); MCHC 31.8 g/dL (33-37); MCV 91.4 FL (81-99); MONO# 0.69 X1000 (0.11-0.59); MONO% 7.1 % (1.7-9.3); MPV 11.6 FL (7.4-10.4); NEUT% 77.6 % (42.2-75.2); PLT 154 X1000 (130-400); RBC 4.06 XMIL (4.2-5.4)
[2016-11-10] MEDS ORDERED: TYLENOL PO ONE (16:28)
[2016-11-10 16:34] LABS: ALBUMIN 3.2 g/dL (3.5-5.0); CALCIUM 8.5 mg/dL (8.8-10.2); POTASSIUM 3.7 mmol/L (3.5-5.1); TOTAL BILIRUBIN 0.5 mg/dL (0.20-1.00); TOTAL PROTEIN 6.9 g/dL (6.3-8.3)
--- NOTE | 2016-11-10 17:29 | PROVIDER DOCUMENTATION ---
This chart was entered by Sarah Fortune Scribe, acting as scribe for Liz Rey MD. HPI-General Adult - General Chief Complaint: UTI Symptoms Stated Complaint: NO APPETITE,URINATING ON SELF Time Seen by Provider: 11/10/16 15:30 Source: patient Allergies/Adverse Reactions: Patient Allergies Allergy/AdvReac Type Severity Reaction Status Date / Time No Known Allergies Allergy Verified 09/11/16 20:24 Home Medications: Home Medication List Medication Instructions Recorded Confirmed Last Taken Type Aspirin 325 mg PO DAILY 10/17/16 11/10/16 Unknown History Ezetimibe 10 mg PO DAILY 10/17/16 11/10/16 Unknown History Febuxostat [Uloric] 40 mg PO DAILY 10/17/16 11/10/16 Unknown History Furosemide 40 mg PO DAILY 10/17/16 11/10/16 Unknown History LISINOpril [Prinivil] 20 mg PO DAILY 10/17/16 11/10/16 Unknown History Methocarbamol 500 mg PO BID 10/17/16 11/10/16 Unknown History Rosuvastatin Calcium [Crestor] 40 mg PO QHS 10/17/16 11/10/16 Unknown History Sitagliptin Phosphate [Januvia] 100 mg PO DAILY 10/17/16 11/10/16 Unknown History Sulfamethoxazole/Tmp D.s. [Septra 1 each PO BID #14 tablet 10/18/16 11/10/16 Unknown Rx Ds] - History of Present Illness -Gen Adult Nature of Presenting Problems: Pt is 76 y/o F presents to the ED with F and weakness. Pt states symptoms have been present for 2 days. Pt denies dysuria and hematuria. Location of Pain/Injury: reports: generalized Pain Radiation: reports: no radiation Quality of Pain: reports: aching Severity: reports: mild Onset/Duration: reports: 2 days ago Timing: reports: still present Context/Activities at Onset: reports: light activity Modifying Factors: improves with: nothing Associated Symptoms: reports: fever/chills (F), weakness. denies: anxiety, arm pain, back/neck pain, chest pain, constipation, cough, diaphoresis, diarrhea, dizziness, EENT symptoms, fatigue, genitourinary problems, headaches, heartburn , joint pain, loss of appetite, malaise, muscle aches, sinus congestion/drainage , nausea, rash, seizure, shortness of breath, sensory/motor loss, pain with inspiration, swelling/mass in abdomen, syncope, vomiting, trouble walking Similar Symptoms Previously?: Yes Recently seen or treated by another doctor?: No Review of Systems - Adult - REVIEW OF SYSTEMS - ADULT Constitutional: reports: fever. denies: chills, fatique Eyes: reports: no symptoms reported Ears, Nose, Mouth & Throat: reports: no symptoms reported Cardiovascular: reports: no symptoms reported Respiratory: reports: no symptoms reported Gastrointestinal: reports: no symptoms reported Genitourinary: reports: no symptoms reported Musculoskeletal: reports: muscle weakness. denies: bone pain, joint pain, neck pain Integumentary: reports: no symptoms reported Neurological: reports: no symptoms reported Psychiatric: reports: no symptoms reported Endocrine: reports: no symptoms reported Hematologic/Lymphatic: reports: no symptoms reported Allergic/Immunologic: reports: no symptoms reported All Other Systems: Reviewed and Negative Past History - Adult - PAST MEDICAL HISTORY-ADULT Review of Records: reports: Nursing Assessment Review, Medications Reviewed, Social history reviewed & non-contributory. Major Childhood Illnesses: reports: denies history Cardiovascular: reports: CAD, HTN, hyperlipidemia, SD Respiratory: reports: COPD (on inhalers) Gastrointestinal: reports: denies history Obstetrical/Gynecological: reports: denies history Genitourinary: reports: denies history Musculoskeletal: reports: arthritis Neurological: reports: CVA Endocrine/Immune: reports: Diabetes Other Conditions: reports: denies history - PRIOR SURGERIES/PROCEDURES Surgical/Procedure History: reports: appendectomy, CABG, cardiac stent - IMMUNIZATION STATUS Childhood Immunizations: See Nurse Assessment Flu Vaccine: See Nurse Assessment - FAMILY HISTORY Family History: reviewed, not pertinent - SOCIAL HISTORY Smoking: denies Substance Use: denies Living Situation: family Physical Exam-General - PHYSICAL EXAM-ADULT Initial Vital Signs Reviewed: Yes - CONSTITUTIONAL General Appearance: appears well, alert, no apparent distress - EYES Eyes: PERRL/EOMI, pink conjunctivae - HEAD, EARS, NOSE, MOUTH & THROAT HENMT: normocephalic/atraumatic, moist mucous membranes, normal ENT inspection - NECK Neck: non-tender, full range of motion, supple, normal inspection - RESPIRATORY Respiratory: chest non-tender, lungs clear, normal breath sounds - CARDIOVASCULAR Cardiovascular: normal peripheral pulses, regular rate, rhythm - GASTROINTESTINAL (ABDOMEN) Abdominal Exam: normal bowel sounds, non tender, soft - LYMPHATIC Lymphatic: no adenopathy - MUSCULOSKELETAL Back Exam: normal inspection, no CVA tenderness, no vertebral tenderness Extremity: normal range of motion, non-tender, normal gait, normal inspection - SKIN Integumentary: normal color, normal turgor, warm/dry - NEUROLOGIC Neurologic: grossly normal - PSYCHIATRIC Psych/Mental Status: normal mood/affect, oriented x 3 Progress - PLAN OF CARE/RESULTS Progress/Plan/Lab Results: Vital Signs - 8 hr 11/10/16 15:23 Temperature 101.3 F H Pulse Rate 82 Respiratory Rate 18 Blood Pressure 138/58 O2 Sat by Pulse Oximetry 98 Orders Category Date Time Status CHEST-PORTABLE [RAD] Stat Exams 11/10/16 15:30 Taken BLOOD CULTURE [BLDCUL] Stat Lab 11/10/16 15:30 Ordered CBC WITH DIFF [HEME] Stat Lab 11/10/16 16:00 Results COMPREHENSIVE METABOLIC PANEL [CHEM] Stat Lab 11/10/16 16:00 Received LACTATE, PLASMA [CHEM] Stat Lab 11/10/16 16:[address] W/POSS RFLX CULT [URINALYSIS] Stat Lab 11/10/16 15:38 Ordered 0.9% Sodium Chloride Inj [Ns] 1,000 ml Med 11/10/16 15:30 Active IV 500 mls/hr Result Diagrams: 11/10/16 16:00 11/10/16 16:00 - XRAY 1 XRAY Study: Chest Impression: Normal XRAY Interpretation: no acute cardiopulmonary abnormality is identified - CHANGE OF SHIFT REPORT (ED Provider) Report Given and Care Transferred to:: Dr. Young Time of Transfer: 18:00 Items Pending: Physician Consult/Arrival Departure - Departure Date of Disposition Decision: 11/10/16 Time of Disposition Decision: 19:00 DIAGNOSIS: Fever, UTI (urinary tract infection), Renal insufficiency Disposition: ADMITTED INPATIENT 09 Certified Medical Emergency: Emergent Condition: Stable - Critical Care Note This patient required my direct & personal management of CC.: No This chart was documented by the indicated scribe, (Sarah Fortune Scribe) and accurately reflects the services I performed and decisions made by me, Liz Rey MD, as attested by the provider's signature.
[2016-11-10] MEDS ORDERED: ROCEPHIN 1 GM/NS 1 GM/50 ML IVPB IV ONE (17:50)
[2016-11-10 20:48] LABS: BILIRUBIN URINE NEGATIVE (NEGATIVE); BLOOD URINE 2+ (NEGATIVE); CLARITY SL. CLOUDY (CLEAR); COLOR YELLOW; GLUCOSE URINE NEGATIVE (NEGATIVE); LEUKOCYTES URINE 2+ (NEGATIVE); NITRITE URINE NEGATIVE (NEGATIVE); PROTEIN URINE TRACE mg/dL (NEGATIVE); SP GRAVITY URINE 1.015; UROBILINOGEN URINE NORMAL
[2016-11-10 21:03] LABS: URINE SOURCE CLEAN CATCH
[2016-11-10 21:04] LABS: URINE CULTURE PL NEEDED? YES; URINE EPITHELIAL CELLS <10 /HPF (<10)
[2016-11-10] MEDS ORDERED: LEVAQUIN PO ONE (21:17)
[2016-11-10] MEDS ORDERED: CRESTOR PO ONE (21:18)
[2016-11-11] MEDS ORDERED: ZOFRAN IV PRN (08:42)
[2016-11-11] MEDS ORDERED: TYLENOL PO PRN (08:42)
[2016-11-11] MEDS: ROCEPHIN 1 GM/NS 1 GM/50 ML IVPB IV SCH (09:34)
[2016-11-11] MEDS: ASPIRIN PO SCH (09:35)
[2016-11-11] MEDS: ZETIA PO SCH (09:35)
[2016-11-11] MEDS: ULORIC PO SCH (09:35)
[2016-11-11] MEDS: ROBAXIN PO SCH ×2 (09:35→20:28)
[2016-11-11] MEDS: NS 1,000 ML IV SCH ×2 (09:35→09:41)
[2016-11-11] MEDS: JANUVIA PO SCH (09:35)
[2016-11-11] MEDS: PRINIVIL PO SCH (09:35)
--- NOTE | 2016-11-11 12:58 | EKG Report ---
Test Performed on : 11/11/2016 11:51:38 AM Test Reason : A-Fib Blood Pressure : / mmHG Vent. Rate : 074 BPM Atrial Rate : 074 BPM P-R Int : 226 ms QRS Dur : 092 ms QT Int : 392 ms P-R-T Axes : 008 -24 047 degrees QTc Int : 435 ms Sinus rhythm. with 1st degree AV block. with premature atrial complexes. Nonspecific T wave abnormality Abnormal ECG When compared with ECG of 16-OCT-2016 11:28, premature atrial complexes. are now present Non-specific change in ST segment in Inferior leads ST no longer depressed in Anterolateral leads T wave inversion no longer evident in Inferior leads T wave inversion no longer evident in Anterolateral leads QT has shortened Confirmed by Jose Young MD ([id number]) on 11/22/2016 6:29:46 PM
[2016-11-12] MEDS: NS 1,000 ML IV SCH (00:03)
[2016-11-12 08:43] LABS: HEMATOCRIT 35.1 % (37.0-47.0); HEMOGLOBIN 11.2 g/dL (12.0-16.0); MCH 29.1 PG (27-31); MCHC 31.9 g/dL (33-37); MCV 91.2 FL (81-99); MPV 11.4 FL (7.4-10.4); RBC 3.85 XMIL (4.2-5.4)
[2016-11-12] MEDS: JANUVIA PO SCH (08:57)
[2016-11-12] MEDS: ZETIA PO SCH (08:57)
[2016-11-12] MEDS: ROCEPHIN 1 GM/NS 1 GM/50 ML IVPB IV SCH (08:57)
[2016-11-12] MEDS: ASPIRIN PO SCH (08:57)
[2016-11-12] MEDS: ROBAXIN PO SCH (08:58)
[2016-11-12] MEDS: PRINIVIL PO SCH (08:58)
[2016-11-12] MEDS: ULORIC PO SCH (08:58)
[2016-11-12 09:07] LABS: ALBUMIN 2.7 g/dL (3.5-5.0); POTASSIUM 4.9 mmol/L (3.5-5.1); TOTAL BILIRUBIN 0.2 mg/dL (0.20-1.00); TOTAL PROTEIN 6.3 g/dL (6.3-8.3)
[2016-11-12 11:17] VITALS: BP 156/71
--- NOTE | 2016-11-12 15:57 | DISCHARGE SUMMARY ---
ADMISSION DATE: 11/10/2016 DISCHARGE DATE: 11/12/2016 DISCHARGE DIAGNOSES: 1. Acute renal failure secondary to volume depletion. 2. Volume depletion. 3. Moderate protein calorie malnutrition. 4. Home noncompliance. Patient had a full bottle of antibiotics from her recent urinary tract infection treatment that was a month ago and the treatment should have only lasted 7 days. 5. Hypertension. 6. Gout. CONSULTATIONS: None. PROCEDURE: None. BRIEF HOSPITAL COURSE: The patient is a 76-year-old female who was admitted as noted on the HPI, treated in the usual fashion. Placed on IV Rocephin and IV fluids. Her serum creatinine decreased from 2.0 down to her baseline of 1.6. On discharge she is awake, alert. She is sitting on the bed eating breakfast. She is having no complaints. Asking to go home. She states that she feels back to her normal self. DISPOSITION: The patient will be discharged home. DISCHARGE INSTRUCTIONS: I discussed with her to not take her Lasix except on an as-needed basis. Do not take this on a daily basis. She will continue all of her other home medications. She will follow up in the office in 1 week and we will recheck her labs at that point. We will continue to follow. TOTAL TIME SPENT ON DISCHARGE: 35 minutes was spent in discharge planning and instructions. cc: Lalo Mccord MD
[2016-11-12] MEDS ORDERED: CRESTOR PO SCH (21:00)
--- NOTE | 2016-11-16 19:38 | HISTORY AND PHYSICAL ---
CHIEF COMPLAINT: Generalized fatigue. HISTORY OF PRESENT ILLNESS: Patient is a 76-year-old female who actually was just admitted to the hospital recently for a UTI. She presents back to the hospital noting that she has been urinating on herself, she has not been drinking well, she has been tired, fatigued, she has been too weak to walk back and forth to the bathroom. Denies any fevers or chills. Denies nausea, vomiting. ALLERGIES: No known drug allergies MEDICATIONS: Aspirin, Zetia, Uloric 40, Lasix 40, lisinopril 20, Robaxin p.r.n., Crestor 40, Januvia 100, Bactrim that she supposedly has finished although her bottle still shows 8 pills in it. She was discharged from the hospital 3 weeks ago with a 7 day course of Bactrim so certainly should have finished that by now. REVIEW OF SYSTEMS: As noted above she has been tired, fatigued and unable to ambulate due to the tiredness and fatigue. States she has had increased urination, decreased oral intake. She has been generally feeling weak and fatigued. Denies any chest pain, palpitations. Denies any blurred vision, change in vision. Denies any focalized numbness, tingling, weakness in her extremities. Denies any blood in her stool. PAST MEDICAL HISTORY: Known coronary artery disease, hypertension, hyperlipidemia, history of history of NM, COPD, she takes inhalers at home, high cholesterol, diabetes, history of stroke. SURGICAL HISTORY: She has had an appendectomy, cardiac stenting and CABG in the past. FAMILY HISTORY: Noncontributory. SOCIAL HISTORY: Patient lives at home. She is , she does not smoke or drink. PHYSICAL EXAMINATION: VITAL SIGNS: Reviewed. Temperature 101.3 degrees, pulse 82, respiratory rate 10, BP 138/58, saturation 98% on room air. GENERAL: Patient is awake, alert, pleasant to talk with. Speech is regular. Memory intact. NECK: Supple. CV: Regular rate. CHEST: Relatively clear. ABDOMEN: Soft. EXTREMITIES: Moves all extremities. NEUROLOGIC: No focal neurological changes. SKIN: Warm and dry. No rashes. LABS: WBC is 9, hemoglobin and hematocrit 11 and 37, sodium 133, bicarb 21, BUN 29, creatinine 2.0, glucose 199. ASSESSMENT: 1. Fever. 2. Sepsis. 3. Urinary tract infection. 4. Acute renal failure secondary to dehydration. 5. Dehydration. 6. Diabetes. 7. Hypertension. 8. Others. PLAN: As patient had an acute change in her serum creatinine we will hold her Lasix, hold her NOELLE inhibitor, give her IV fluids. Will treat her sepsis which I believe is secondary to UTI with antibiotics, will continue to follow. Further orders as needed. cc: Lalo Mccord MD
== END 2016-11-12 13:06 | disposition home or self-care (01) ==
LOC: P.ED 15:19 → P.MEDSURG 15:19
PROVIDERS: ADMIT Family Medicine; ATTEND Family Medicine